=== PATIENT | male | born 1955 | race Caucasian/White ===

== ENCOUNTER 2023-09-29 18:47 | Inpatient (IN) | payer OTHER ==
[~2023-09-29] VITALS: Ht 177.8 cm; Wt 78.0 kg
[2023-09-29 19:00] VITALS: BP_SYST 138; PULSE 92; RESP 18; TEMP 98.1; O2SAT 98
[2023-09-29 20:56] LABS: HEMOGLOBIN 7.2 g/dL (14.0-18.0); MEAN CORPUSCULAR HEMOGLOBIN 30 pg (27-31); MEAN CORPUSCULAR HGB CONC 34 % (32-36); MEAN CORPUSCULAR VOLUME 88 fL (79.0-98.0); PLATELET COUNT (AUTO) 671 K/uL (130-430); RED BLOOD CELL COUNT(AUTO) 2.45 MIL/uL (4.2-6.2); RED CELL DISTRIBUTION WIDTH 14.1 % (9.0-15.0); WHITE BLOOD COUNT (AUTO) 28.4 K/uL (4.8-10.8)
[2023-09-29 21:09] LABS: HEMATOCRIT 21.5 % (36-54)
[2023-09-29 21:32] LABS: ANION GAP 24 (5-15); CALCIUM 8.5 mg/dL (8.4-11.0); CARBON DIOXIDE 18 mmol/L (23-29); CHLORIDE 86 mmol/L (98-107); GFR AFRICAN AMERICAN 4 mL/min (>90); GLUCOSE 155 mg/dL (74-106); SODIUM SERUM 128 mmol/L (136-145)
[2023-09-29 21:35] LABS: BAND % (MANUAL) 10 % (0-6); BASOPHILS % (MANUAL) 0 % (0-2); EOSINOPHILS % (MANUAL) 0 % (0-7); LYMPHOCYTES % (MANUAL) 0 % (20-46); MONOCYTES % (MANUAL) 0 % (0-11); PLATELET ESTIMATE INCREASED (ADEQUATE)
[2023-09-29 21:38] LABS: GFR NON AFRICAN-AMERICAN 3 mL/min (>90)
[2023-09-29 21:41] LABS: POTASSIUM 6.7 mmol/L (3.5-5.1); UREA NITROGEN, BLOOD 216 mg/dL (8-21)
[2023-09-29 21:42] LABS: CREATININE 14.97 mg/dL (0.55-1.30)
[2023-09-29] MEDS: cefTRIAXone 1 GM IVPB PREMIX 50 ML IV ONE (22:45)
[2023-09-29] MEDS: SODIUM POLYSTYRENE SULFONATE 15 GM/60 ML UDBTL PO ONE (22:46)
[2023-09-29] MEDS ORDERED: cefTRIAXone 1 GM IVPB PREMIX 50 ML IV ONE (22:46)
[2023-09-29] MEDS: MORPHINE 4 MG INJ. 4 MG/ML VIAL IVP ONE (22:46)
[2023-09-29] MEDS: NACL 0.9% 1,000 ML IV ONE (22:48)
[2023-09-30 03:00] VITALS: BP_SYST 130; PULSE 92; RESP 16; TEMP 97.1; O2SAT 100
[2023-09-30] MEDS: LINEZOLID 300 ML IV SCH ×2 (05:00→10:38)
[2023-09-30] MEDS: D5/0.45 NS 1,000 ML IV SCH (05:38)
[2023-09-30] MEDS ORDERED: LINEZOLID 300 ML IV SCH (06:00)
[2023-09-30 08:00] VITALS: BP_SYST 134; PULSE 76; RESP 18; TEMP 97.7; O2SAT 76; O2SAT 97
[2023-09-30 08:24] LABS: BASOPHILS # (AUTO) 0.1 K/uL (0.0-0.2); BASOPHILS % (AUTO) 0.2 % (0.0-2.0); EOSINOPHILS # (AUTO) 0.2 K/uL (0.0-0.4); EOSINOPHILS % (AUTO) 0.7 % (0.0-4.0); LYMPHOCYTES # (AUTO) 0.7 K/uL (1.0-5.5); LYMPHOCYTES % (AUTO) 2.2 % (20.5-51.5); MEAN CORPUSCULAR HEMOGLOBIN 29 pg (27-31); MEAN CORPUSCULAR HGB CONC 33 % (32-36); MEAN CORPUSCULAR VOLUME 89 fL (79.0-98.0); MONOCYTES # (AUTO) 0.9 K/uL (0.0-1.0); MONOCYTES % (AUTO) 2.8 % (1.7-9.3); NEUTROPHILS # (AUTO) 28.6 K/uL (1.8-7.7); NEUTROPHILS % (AUTO) 94.1 % (40.0-70.0); PLATELET COUNT (AUTO) 565 K/uL (130-430); RED CELL DISTRIBUTION WIDTH 14.5 % (9.0-15.0)
[2023-09-30 08:27] LABS: HEMATOCRIT 19.6 % (36-54); HEMOGLOBIN 6.4 g/dL (14.0-18.0); WHITE BLOOD COUNT (AUTO) 30.4 K/uL (4.8-10.8)
[2023-09-30 08:41] LABS: ALANINE AMINOTRANSFERASE 12 U/L (12-78); ALBUMIN 2.4 g/dL (3.4-4.8); ANION GAP 24 (5-15); ASPARTATE AMINOTRANSFERASE 9 U/L (10-37); CALCIUM 7.9 mg/dL (8.4-11.0); CARBON DIOXIDE 18 mmol/L (23-29); CHLORIDE 87 mmol/L (98-107); GFR AFRICAN AMERICAN 4 mL/min (>90); GLUCOSE 144 mg/dL (74-106); SODIUM SERUM 129 mmol/L (136-145); TOTAL BILIRUBIN 0.6 mg/dL (0.0-1.0); TOTAL PROTEIN, SERUM 7.6 g/dL (6.4-8.3)
[2023-09-30 08:51] LABS: POTASSIUM 6.5 mmol/L (3.5-5.1)
[2023-09-30 08:52] LABS: CREATININE 14.99 mg/dL (0.55-1.30); GFR NON AFRICAN-AMERICAN 3 mL/min (>90)
[2023-09-30 09:05] LABS: UREA NITROGEN, BLOOD > 225 mg/dL (8-21)
[2023-09-30 09:25] VITALS: O2SAT 98
[2023-09-30] MEDS: ALBUTEROL SULFATE 0.083% 2.5 MG/3 ML VIAL.NEB INH ONE (09:38)
[2023-09-30] MEDS ORDERED: LORazepam 2 MG/ML VIAL IVP PRN (10:45)
[2023-09-30] MEDS ORDERED: ACETAMINOPHEN 325 MG TABLET PO PRN (10:45)
[2023-09-30] MEDS ORDERED: NALOXONE HCL 0.4 MG/ML AMP (NARCAN) IVP PRN ×2 (10:45)
[2023-09-30] MEDS: DEXTROSE 50% JECT 50 ML DISP.SYRIN IVP ONE (10:51)
[2023-09-30] MEDS: INSULIN REGULAR, HUMAN 10 UNITS/0.1 ML, 3 ML VIAL IVP ONE (10:56)
[2023-09-30] MEDS: SODIUM POLYSTYRENE SULFONATE 15 GM/60 ML UDBTL PO ONE (11:04)
[2023-09-30 11:49] VITALS: BP_SYST 138; PULSE 84; RESP 18; TEMP 97.8; O2SAT 95
[2023-09-30] MEDS: HYDROcodone/ACETAMIN 10-325 MG TAB PO PRN (14:00)
[2023-09-30 15:45] VITALS: BP_SYST 120; PULSE 84; RESP 20; TEMP 97.7; O2SAT 99
[2023-09-30 16:23] LABS: BILIRUBIN,URINE NEGATIVE (NEGATIVE); BLOOD, URINE NEGATIVE (NEGATIVE); CLARITY/URINE CLEAR (CLEAR); COLOR,URINE YELLOW (YELLOW); GLUCOSE,URINE NEGATIVE (NEGATIVE); KETONES,URINE NEGATIVE (NEGATIVE); LEUKOCYTE ESTERASE ,URINE NEGATIVE (NEGATIVE); NITRITE, URINE NEGATIVE (NEGATIVE); PH,URINE 6.5 (5.0-8.0); PROTEIN URINE NEGATIVE (NEGATIVE); UROBILINOGEN,URINE 0.2 (0.2-1.0)
[2023-09-30] MEDS: HEPARIN SODIUM, PORCINE 10,000 UNITS/ 10 ML VIAL MC ONE (17:32)
[2023-09-30 20:05] VITALS: BP_SYST 124; PULSE 84; RESP 18; TEMP 97.8; O2SAT 97
[2023-09-30] MEDS: SODIUM BICARBONATE 8.4% JECT 50 MEQ/50 ML SYRINGE IVP ONE (23:12)
[2023-10-01] VITALS: BP_SYST 131; PULSE 78; RESP 18; TEMP 98.7; O2SAT 99
[2023-10-01] MEDS: ONDANSETRON HCL 4 MG/2 ML VIAL IVP PRN (03:24)
[2023-10-01 05:02] LABS: URINE SODIUM, RANDOM 23 mmol/L (40-220)
[2023-10-01 08:00] VITALS: O2SAT 97
[2023-10-01 08:06] VITALS: BP_SYST 138; PULSE 88; RESP 18; TEMP 97.9; O2SAT 97
[2023-10-01 08:13] LABS: BASOPHILS # (AUTO) 0.1 K/uL (0.0-0.2); BASOPHILS % (AUTO) 0.2 % (0.0-2.0); EOSINOPHILS # (AUTO) 0.2 K/uL (0.0-0.4); EOSINOPHILS % (AUTO) 0.9 % (0.0-4.0); LYMPHOCYTES # (AUTO) 0.3 K/uL (1.0-5.5); LYMPHOCYTES % (AUTO) 1.1 % (20.5-51.5); MEAN CORPUSCULAR HEMOGLOBIN 30 pg (27-31); MEAN CORPUSCULAR HGB CONC 33 % (32-36); MEAN CORPUSCULAR VOLUME 89 fL (79.0-98.0); MONOCYTES # (AUTO) 0.7 K/uL (0.0-1.0); MONOCYTES % (AUTO) 2.9 % (1.7-9.3); NEUTROPHILS # (AUTO) 22.7 K/uL (1.8-7.7); PLATELET COUNT (AUTO) 537 K/uL (130-430); RED BLOOD CELL COUNT(AUTO) 2.13 MIL/uL (4.2-6.2); RED CELL DISTRIBUTION WIDTH 14.5 % (9.0-15.0); WHITE BLOOD COUNT (AUTO) 23.9 K/uL (4.8-10.8)
[2023-10-01 08:32] LABS: HEMOGLOBIN 6.3 g/dL (14.0-18.0)
[2023-10-01 08:33] LABS: NEUTROPHILS % (AUTO) 94.9 % (40.0-70.0)
[2023-10-01 08:42] LABS: CALCIUM 7.9 mg/dL (8.4-11.0); CREATININE 4.23 mg/dL (0.55-1.30); PHOSPHORUS 6.1 mg/dL (2.7-4.5)
[2023-10-01 08:51] LABS: POTASSIUM 2.5 mmol/L (3.5-5.1)
[2023-10-01] MEDS: HEPARIN SODIUM, PORCINE 10,000 UNITS/ 10 ML VIAL MC ONE (09:00)
[2023-10-01] MEDS: HEPARIN SODIUM,PORCINE 5,000 UNITS/ML VIAL ONE (09:00)
[2023-10-01] MEDS: BALSAM PERU/CASTOR OIL 56.7 GM OINT...G. TP SCH (09:12)
[2023-10-01] MEDS ORDERED: IRON DEXTRAN COMPLEX 100 MG in NS 100 ML IV SCH (10:30)
[2023-10-01] MEDS: KCL 20 mEq in 100 mL (PREMIX) 100 ML IV SCH (11:56)
[2023-10-01] MEDS ORDERED: KCL 20 mEq in 100 mL (PREMIX) 100 ML IV ONE (12:30)
[2023-10-01 12:40] VITALS: BP_SYST 128; PULSE 89; RESP 18; TEMP 98; O2SAT 99
[2023-10-01] MEDS ORDERED: POTASSIUM CHLORIDE 20 MEQ/PKT PACKET PO ONE (12:50)
[2023-10-01] MEDS: SOD FERRIC GLUC COMPLEX/SUC 125 MG in NS 100 ML IV SCH (14:15)
[2023-10-01 16:30] VITALS: BP_SYST 124; PULSE 81; RESP 17; TEMP 97.8; O2SAT 99
[2023-10-01] MEDS: EPOETIN ALFA-EPBX 3,000 UNITS/ML VIAL SUBCUT SCH (18:02)
[2023-10-01] MEDS: HYDROcodone/ACETAMIN 5-325 MG TAB (NORCO/ VICODIN) PO PRN (18:12)
[2023-10-01 20:00] VITALS: O2SAT 100
[2023-10-01] MEDS: POTASSIUM CHLORIDE 20 MEQ TABLET.ER PO SCH (21:45)
[2023-10-02] VITALS (7 sets, daily range): BP systolic 129–143; PULSE 65–94; RESP 16–19; TEMP 97.5–98.9; O2SAT 98–100
[2023-10-02 07:52] LABS: BASOPHILS # (AUTO) 0.1 K/uL (0.0-0.2); BASOPHILS % (AUTO) 0.3 % (0.0-2.0); EOSINOPHILS # (AUTO) 0.7 K/uL (0.0-0.4); EOSINOPHILS % (AUTO) 2.7 % (0.0-4.0); HEMATOCRIT 22.6 % (36-54); HEMOGLOBIN 7.5 g/dL (14.0-18.0); LYMPHOCYTES # (AUTO) 0.8 K/uL (1.0-5.5); LYMPHOCYTES % (AUTO) 3.1 % (20.5-51.5); MEAN CORPUSCULAR HEMOGLOBIN 29 pg (27-31); MEAN CORPUSCULAR HGB CONC 33 % (32-36); MEAN CORPUSCULAR VOLUME 89 fL (79.0-98.0); MONOCYTES # (AUTO) 1.2 K/uL (0.0-1.0); MONOCYTES % (AUTO) 4.5 % (1.7-9.3); NEUTROPHILS # (AUTO) 23.1 K/uL (1.8-7.7); PLATELET COUNT (AUTO) 508 K/uL (130-430); RED BLOOD CELL COUNT(AUTO) 2.56 MIL/uL (4.2-6.2); RED CELL DISTRIBUTION WIDTH 15.6 % (9.0-15.0); WHITE BLOOD COUNT (AUTO) 25.9 K/uL (4.8-10.8)
[2023-10-02 08:10] LABS: NEUTROPHILS % (AUTO) 89.4 % (40.0-70.0)
[2023-10-02 08:11] LABS: CALCIUM 7.8 mg/dL (8.4-11.0); CREATININE 1.88 mg/dL (0.55-1.30); PHOSPHORUS 2.4 mg/dL (2.7-4.5); TOTAL BILIRUBIN 0.2 mg/dL (0.0-1.0); TOTAL IRON BIND. CAPACITY 479 ug/dL (250-450); TOTAL PROTEIN, SERUM 6.5 g/dL (6.4-8.3)
[2023-10-02 08:16] LABS: POTASSIUM 2.5 mmol/L (3.5-5.1)
[2023-10-02 08:20] LABS: ERYTHROCYTE SEDIMENTATION RATE 24 MM/HR (0-15)
[2023-10-02] MEDS: FOLIC ACID 1 MG TABLET PO SCH (08:44)
[2023-10-02] MEDS: POTASSIUM CHLORIDE 20 MEQ TABLET.ER PO ONE (10:42)
[2023-10-02] MEDS: CALCIUM GLUC 2 GM/100ML-NACL 100 ML IV ONE (10:46)
[2023-10-02] MEDS: K PHOS 30 MM in NS 250 ML IV ONE (13:03)
[2023-10-03] MEDS ORDERED: POTASSIUM CHLORIDE 20 MEQ in D5/0.45 NS 1,000 ML IV SCH (01:15)
[2023-10-04 10:06] LABS: QUANTIFERON TB GOLD Indeterminate (Negative)
[2023-10-08 14:21] LABS: HEPATITIS A AB, IgM Negative (Negative); HEPATITIS B CORE AB, IgM Negative (Negative); HEPATITIS B SURFACE AG Negative (Negative); HEPATITIS C VIRUS AB Negative <0.9 (0.0-0.9)
== END 2023-10-02 21:45 | disposition short-term general hospital (02) | DRG 871 ==
LOC: SED 18:47 → STU 09-30 01:10
PROVIDERS: ADMIT Preventive Medicine Preventive Medicine/Occupational Environmental Medicine; ATTEND Preventive Medicine Preventive Medicine/Occupational Environmental Medicine
PROC: 02HV33Z Insertion of Infusion Device into Superior Vena Cava, Percutaneous Approach (ICD-10-PCS; 2023-09-30)
PROC: B548ZZA Ultrasonography of Superior Vena Cava, Guidance (ICD-10-PCS; 2023-09-30)
PROC: 5A1D70Z Performance of Urinary Filtration, Intermittent, Less than 6 Hours Per Day (ICD-10-PCS; 2023-09-30)
PROC: 30233N1 Transfusion of Nonautologous Red Blood Cells into Peripheral Vein, Percutaneous Approach (ICD-10-PCS; principal; 2023-10-01)
DX: A41.9 Sepsis, unspecified organism (principal); N17.0 Acute kidney failure with tubular necrosis; U07.1 COVID-19; L97.919 Non-pressure chronic ulcer of unspecified part of right lower leg with unspecified severity; L03.115 Cellulitis of right lower limb; E87.20 Acidosis, unspecified; L97.929 Non-pressure chronic ulcer of unspecified part of left lower leg with unspecified severity; L03.116 Cellulitis of left lower limb; E87.1 Hypo-osmolality and hyponatremia; N13.30 Unspecified hydronephrosis; E87.5 Hyperkalemia; E83.41 Hypermagnesemia; E83.39 Other disorders of phosphorus metabolism; D75.839 Thrombocytosis, unspecified; D72.823 Leukemoid reaction; D63.8 Anemia in other chronic diseases classified elsewhere; I89.0 Lymphedema, not elsewhere classified; E83.52 Hypercalcemia; N31.2 Flaccid neuropathic bladder, not elsewhere classified; E87.6 Hypokalemia; E83.51 Hypocalcemia
CPT/HCPCS: 36415; 71045; 76770; 80048; 80053; 80074; 81001; 81003; 82272; 82570; 83540; 83550; 83605; 83735; 83880; 84100; 84302; 84484; 85007; 85025; 85027; 85044; 85651; 86480; 86886; 86900; 86901; 86920; 87040; 87070; 87081; 87186; 90935; 93005; 93970; 94640; 94760; 96365; 97110-GP; 97530-GP; 99285; G0378; J0696; J1644; J1815; J2020; J2270; J2405; J2916; J3480; J7050; J7060; P9021; Q5106